=== PATIENT | male | born 1960 ===

== ENCOUNTER 2024-12-06 12:00 | Inpatient (IN) | payer OTHER ==
[~2024-12-06] VITALS: Ht 157.5 cm; Wt 79.4 kg
[2024-12-06 13:45] LABS: HEMATOCRIT 40.7 % (39.0-48.0); HEMOGLOBIN 14.1 g/dL (13-16.00); MEAN CELL VOLUME 92.6 fL (80.0-100.00); MEAN CORPUSCULAR HGB CONC 34.5 g/dl (32.0-36.0); PLATELET COUNT 176 K/uL (150-450); RED BLOOD COUNT 4.39 M/uL (4.00-6.00); RED CELL DISTRIBUTION WIDTH 13.1 % (11.5-14.5)
[2024-12-06] MEDS ORDERED: SYNTHROID88 MCG PO (13:53)
[2024-12-06] MEDS ORDERED: ROSUVASTATIN CAL5 MG PO (13:54)
[2024-12-06] MEDS ORDERED: ZETIA10 MG PO (13:54)
[2024-12-06] MEDS ORDERED: TOPROL XL50 M1 PO (13:54)
[2024-12-06] MEDS ORDERED: LOSARTAN POTAS100 MG PO (13:54)
[2024-12-06] MEDS ORDERED: METFORMIN HCL1000 M2 PO (13:55)
[2024-12-06 13:57] LABS: URINE APPEARANCE Clear; URINE BILIRRUBIN Negative (NEGATIVE); URINE BLOOD Negative; URINE COLOR Yellow; URINE GLUCOSE Negative (NEGATIVE); URINE KETONE Negative (NEGATIVE); URINE LEUKOCYTE Negative; URINE NITRATE Negative; URINE PROTEIN Negative (NEGATIVE); URINE UROBILINOGEN 0.2 E.U./dl
[2024-12-06 13:58] VITALS: BP 130/80
[2024-12-06 14:05] LABS: URINE BACTERIA 3.6 uL (0.0-1933); URINE EPITHELIAL CELLS 0.1 uL (0.0-38.8); URINE RBC 0.8 uL (0.0-20.8); URINE WBC 0.9 uL (0.0-23.2)
[2024-12-06 14:05] LABS: INR 1.12; PARTIAL THROMBOPLASTIN TIME 27.3 SECONDS (22.0-34.0); PROTHROMBIN TIME 12.1 SECONDS (9.0-11.5)
[2024-12-06 14:07] LABS: CALCIUM 9.3 mg/dL (8.5-10.1); CREATININE SERUM 0.99 mg/dL (0.70-1.30); GFR 75.63; POTASSIUM 3.68 mEq/L (3.5-5.1)
[2024-12-06 15:22] LABS: RH POSITIVE
[2024-12-13] MEDS ORDERED: HEMOSTATIC MATRIX 1 KIT KIT TOP ONE (13:02)
[2024-12-13] MEDS ORDERED: ENOXAPARIN SODIUM 40 MG/0.4 ML SYRINGE SUBCUTANEO ONE (13:02)
[2024-12-13] MEDS ORDERED: SURGIFLO APPLICATOR 1 EACH APPL TOP ONE (13:02)
[2024-12-13] MEDS ORDERED: CEFAZOLIN SODIUM 1,000 MG VIAL ONE ×2 (13:03→20:41)
[2024-12-13] MEDS ORDERED: BUPIVACAINE HCL 30 ML VIAL IJ ONE (14:15)
[2024-12-13] MEDS ORDERED: SUGAMMADEX SODIUM 200 MG/2 ML VIAL IV ONE ×2 (18:39→18:45)
[2024-12-13] MEDS ORDERED: OxyCODONE HCL/APAP UD (PERCOCET) PO PRN (18:45)
[2024-12-13] MEDS ORDERED: DEXTROSE 50 % IN WATER 0.5 G/ML DISP.SYRIN IV PRN (18:45)
[2024-12-13] MEDS ORDERED: RINGERS SOLUTION,LACTATED 1,000 ML IV SCH (18:45)
[2024-12-13] MEDS ORDERED: ONDANSETRON HCL 2 MG/ML VIAL IV PRN (18:45)
[2024-12-13] MEDS ORDERED: INSULIN LISPRO 1,000 UNIT/10 ML UNITS SUBCUTANEO PRN (18:45)
[2024-12-13] MEDS ORDERED: MORPHINE SULFATE 4 MG/ML CARTRIDGE IV PRN (18:45)
[2024-12-13] MEDS ORDERED: FAMOTIDINE/PF 20 MG/2 ML VIAL ONE (20:41)
[2024-12-13] MEDS ORDERED: FAMOTIDINE/PF 20 MG/2 ML VIAL IV SCH (21:00)
[2024-12-13] MEDS ORDERED: CEFAZOLIN SODIUM 1,000 MG VIAL IV SCH (21:00)
[2024-12-13 22:20] VITALS: BP 124/60; O2SAT 99
[2024-12-14] MEDS ORDERED: GABAPENTIN 300 MG CAPSULE PO SCH (01:00)
[2024-12-14 01:23] VITALS: BP 100/56; O2SAT 96
[2024-12-14] MEDS ORDERED: LEVOTHYROXINE SODIUM 88 MCG TABLET PO SCH (06:00)
[2024-12-14 07:14] LABS: HEMATOCRIT 35.3 % (39.0-48.0); HEMOGLOBIN 12.1 g/dL (13-16.00); MEAN CELL VOLUME 92.3 fL (80.0-100.00); MEAN CORPUSCULAR HEMOGLOBIN 31.7 pg (27.00-32.0); MEAN CORPUSCULAR HGB CONC 34.3 g/dl (32.0-36.0); PLATELET COUNT 139 K/uL (150-450); RED BLOOD COUNT 3.82 M/uL (4.00-6.00); RED CELL DISTRIBUTION WIDTH 13.2 % (11.5-14.5)
[2024-12-14 07:55] LABS: ALBUMIN 3.1 gm/dL (3.4-5.0); CALCIUM 8.3 mg/dL (8.5-10.1); CREATININE SERUM 1.08 mg/dL (0.70-1.30); GFR 68.41; PHOSPHOROUS 3.4 mg/dL (2.5-4.9); POTASSIUM 4.1 mEq/L (3.5-5.1)
[2024-12-14] MEDS ORDERED: METOPROLOL SUCCINATE 50 MG TAB.SR.24H PO SCH (09:00)
[2024-12-14] MEDS ORDERED: ENOXAPARIN SODIUM 40 MG/0.4 ML SYRINGE SUBCUTANEO SCH (09:00)
[2024-12-14] MEDS ORDERED: LOSARTAN POTASSIUM 100 MG TABLET PO SCH (09:00)
[2024-12-14 10:59] VITALS: BP 119/81; O2SAT 97
[2024-12-14] MEDS ORDERED: POLYETHYLENE GLYCOL 3350 17 GM BLIST.PACK PO SCH (17:00)
== END 2024-12-14 14:12 | disposition home or self-care (01) | DRG 708 ==
LOC: SURH 12-13 05:00 → O/R 12-13 05:00 → SURH 12-13 12:00
PROVIDERS: ADMIT Urology; ATTEND Urology
PROC: 07BC4ZZ Excision of Pelvis Lymphatic, Percutaneous Endoscopic Approach (ICD-10-PCS; 2024-12-13)
PROC: 8E0W4CZ Robotic Assisted Procedure of Trunk Region, Percutaneous Endoscopic Approach (ICD-10-PCS; 2024-12-13)
PROC: 0VT04ZZ Resection of Prostate, Percutaneous Endoscopic Approach (ICD-10-PCS; principal; 2024-12-13 13:00)
DX: C61 Malignant neoplasm of prostate (principal)
CPT/HCPCS: 55866; 38571; S2900

== ENCOUNTER 2024-12-20 11:32 | Outpatient (CLI) | payer OTHER ==
[~2024-12-20 11:32] MED LIST: LOSARTAN POTAS100 MG PO; METFORMIN HCL1000 M2 PO; ROSUVASTATIN CAL5 MG PO; SYNTHROID88 MCG PO; TOPROL XL50 M1 PO; ZETIA10 MG PO
== END 2024-12-20 11:40 | disposition home or self-care (01) ==
LOC: TOM 11:32
PROVIDERS: ATTEND Urology
DX: C61 Malignant neoplasm of prostate (principal)